=== PATIENT | male | born 1990 | race Caucasian/White ===

== ENCOUNTER 2024-03-17 08:46 | Emergency (ER) | payer OTHER, SELFPAY ==
[2024-03-17 08:52] VITALS: BP 136/80; PULSE 76; RESP 18; TEMP 36.7; O2SAT 100
--- NOTE | 2024-03-17 08:55 | ED.DENTAL ---
HPI - Dental/Oral General Chief complaint: Dental/Oral Stated complaint: tooth pain Source: patient Mode of arrival: ambulatory History of Present Illness HPI Narrative: 34 y/o male presented for c/o right lower dental pain worsening over the past few days. Reports filling came out about 3 weeks ago. States last night at 0200 the pain became intolerable. Has taken ibuprofen and Tylenol without much help, and states he needs abx. Hx dental abscesses and poor dentition. plans to f/u with [facility]. Complaint: tooth pain Related Data Allergies Allergy/AdvReac Type Severity Reaction Status Date / Time cefaclor Allergy Severe swelling Verified 11/15/19 10:50 Penicillins Allergy Severe swelling Verified 11/15/19 10:50 Review of Systems Review of Systems: CONSTITUTIONAL: Denies body aches, fever, chills ENT: Denies rhinorrhea, congestion, sore throat, or otalgia. Reports dental pain CARDIOVASCULAR: Denies chest pain, palpitations RESPIRATORY: Denies cough or dyspnea. SKIN: Denies rash, itching, or wounds. MUSCULOSKELETAL: Denies myalgia. NEUROLOGIC: Denies headache, numbness, tingling, or weakness. [facility] Social History Social History Gender identity (if verbalized by the patient): Male Comments At time of signature, I have reviewed and agree with nursing past medical, surgical, social and family history unless otherwise noted. Please see nursing chart for further information. There is no relevant family history pertinent to the presenting complaint Exam Narrative: GENERAL: Appears in pain; no acute distress. HEAD: Normocephalic, atraumatic. EYES: EOMI. No redness or drainage. Conjunctivae normal. ENT: Dental pain location of #19, broken tooth with mild gum erythema and swelling; multiple missing teeth/poor dentition; partial plate lower (removed for exam). no dysphagia, odynophagia, dysphonia, or dyspnea. No uvular deviation or soft palate edema. Mucous membranes pink and moist. TMs normal bilaterally. Throat normal. Uvula midline. NECK: Normal AROM. No lymphadenopathy. no induration below mandible, no neck pain. CHEST: No respiratory distress. Clear to auscultation. HEART: Regular rate and rhythm. No murmur appreciated. SKIN: Warm, dry, no rash. Normal skin turgor. NEURO: No focal deficits. Alert and oriented x3. Gait steady. Course Course Emergency Course: Patient is aware of diagnosis, understands and agrees to treatment plan. Anticipatory guidance given. Patient agrees to follow-up as directed and is aware of reasons to seek care at the emergency department. Portions of this record may have been created with voice recognition software Level of Care: Express Care Visit MDM - Dental/Oral MDM Narrative Medical decision making narrative: Patients pain and complaint coupled with physical findings are consistent with dental abscess. There are no focal signs of space occupying lesions that are compromising to the airway; Patient is non-toxic appearing. The floor of the mouth is soft with no signs of Yasmani's Angina;Patient is without trismus or drooling and able to swallow secretions. Patient is felt appropriate for discharge home with dental follow up. Rx clinda. Differential Diagnosis Differential diagnosis: Likely gingival abscess, dental caries, toothache, dental abscess, fracture of tooth and aphthous ulcer Discharge Plan Discharge Clinical Impression: Toothache Patient Disposition: Home, Self-Care Condition: Stable Instructions: Antibiotic Form, Dental Abscess (ED) Additional Instructions: Take antibiotic as directed May apply heat or ice to the face Gentle brushing and flossing. Rinse mouth with warm salt water at least 2 times a day. Alternate Tylenol and ibuprofen as needed for pain Follow-up with the dentist as soon as possible --see the list provided go to the ER for worsening symptoms or concerns Pre
== END 2024-03-17 09:06 | disposition home or self-care (01) ==
PROVIDERS: Emergency Provider Nurse Practitioner Family
DX: K08.89 Other specified disorders of teeth and supporting structures (principal)
CPT/HCPCS: 99203; G0463

== ENCOUNTER 2024-04-11 13:05 | Emergency (ER) | payer OTHER, SELFPAY ==
[2024-04-11 13:12] VITALS: BP 142/95; PULSE 99; RESP 16; TEMP 36.9; O2SAT 100
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
--- NOTE | 2024-04-11 13:48 | ECG_ITS ---
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 Measurements Intervals [place] Rate: P: TN: QRS: QRSD: T: QT: QTc: Interpretive Statements POOR QUALITY ECG PHOTOCOPY, DIFFICULT INTERPRETATION SINUS RHYTHM GROSSLY NORMAL ECG Electronically Signed On 04-18-2024 08:51:29 CDT by Alli Menjivar M.D.
== END 2024-04-11 14:19 | disposition home or self-care (01) ==
PROVIDERS: Emergency Provider Nurse Practitioner Family
DX: S61.213A Laceration without foreign body of left middle finger without damage to nail, initial encounter (principal); W45.8XXA Other foreign body or object entering through skin, initial encounter; T75.4XXA Electrocution, initial encounter; W86.0XXA Exposure to domestic wiring and appliances, initial encounter; Y99.8 Other external cause status
CPT/HCPCS: 12001; 93005; 99213; G0463

== ENCOUNTER 2024-06-26 08:34 | Outpatient (CLI) | payer OTHER, SELFPAY ==
[2024-06-26 19:21] LABS: Basophils Percent Auto 0.8 % (0.2-1.2); Eosinophils Absolute Auto 0.1 K/mm3 (0-0.3); Eosinophils Percent Auto 1.2 % (0-4.4); Hematocrit 42.6 % (42.0-52.0); Hemoglobin 14.8 g/dL (14.0-18.0); Lymphocytes Absolute Auto 1.48 K/mm3 (0.9-3.2); Lymphocytes Percent Auto 28.6 % (18.3-44.2); Mean Corpuscular HGB Conc 34.7 g/dl (32-36); Mean Corpuscular Hemoglobin 32.7 pg (26-34); Monocytes Absolute Auto 0.3 K/mm3 (0.1-0.6); Monocytes Percent Auto 6.6 % (2.6-8.5); Neutrophils Absolute Auto 3.3 K/mm3 (1.3-6.7); Neutrophils Percent Auto 62.8 % (45.5-73.1); Platelet Count Result 190 k/mm3 (150-375); Red Blood Count 4.53 M/mm3 (4.6-6.20); Red Cell Distribution Width 11.6 % (11.5-14.5); White Blood Count 5.2 K/mm3 (4.5-10.0)
[2024-06-26 19:37] LABS: Alanine Aminotransferase 18 U/L (6-50); Albumin Level 4.6 g/dL (3.5-5.1); Alkaline Phosphatase 55 U/L (38-126); Anion Gap 11 mmol/L (4-12); Aspartate Amino Transferase 45 U/L (17-59); Bilirubin,Total 0.8 mg/dL (0.2-1.3); Blood Urea Nitrogen 17 mg/dL (9-20); Calcium 9.2 mg/dL (8.4-10.2); Carbon Dioxide 25 mmol/L (22-30); Chloride 101 mmol/L (98-107); Cholesterol 225 mg/dL (0-200); Estimated Glomerular Filt Rate > 60; Glucose 89 mg/dL (65-110); HDL Direct 61 mg/dL; Potassium 3.8 mmol/L (3.4-5.0); Sodium 137 mmol/L (137-145); Triglycerides 68 mg/dL (<150)
[2024-06-26 19:48] LABS: LDL Cholesterol Direct 141 mg/dL
[2024-06-26 19:55] LABS: Vitamin D 25 Hydroxy 31.7 ng/mL
[2024-06-26 20:44] LABS: Folic Acid 11.1 ng/mL (2.76->20)
[2024-06-30 21:13] LABS: Testosterone Free 93.2 pg/mL (35.0-155.0); Testosterone Total 564 ng/dL (250-1100)
== END 2024-06-26 08:35 | disposition home or self-care (01) ==
PROVIDERS: PCP Nurse Practitioner Adult Health; Visit Provider Nurse Practitioner Adult Health
DX: Z13.9 Encounter for screening, unspecified (principal); R53.83 Other fatigue
CPT/HCPCS: 36415; 80053; 80061; 82306; 82607; 82746; 84402; 84403; 84443; 85025

== ENCOUNTER 2025-07-21 10:24 | Outpatient (CLI) | payer OTHER, SELFPAY ==
--- OUTSIDE RECORDS SUMMARY | 2016-02-21 11:30 | XMS_ITS | Continuity of Care Document ---
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 Role Phone Shahram Henderson MD Unavailable Unavailable Allergies, Adverse Reactions, Alerts Substance Reaction Status Criticality cefaclor Active No Information Medications Medication Instructions Dosage Effective Dates (start - stop) Status Comments oxycodone 5 mg tablet take 1 tablet by oral route 3 times every day as needed 5 MG - Active avoid drivin g or operate machines morphine ER 15 mg tablet,extended release take 1 tablet by oral route 2 times every day 15 MG - Active avoid driving or operate machines Procedures Procedure Date OFFICE/OUTPATIENT VISIT, EST PREV VISIT, NEW, AGE 18-39 OFFICE/OUTPATIENT VISIT, NEW Advance Directives Directive Yes / No Effective Date File Name No Information Encounters Encounter Description Practice Location Reason(s) For Visit Diagnoses Date Provider Providers Copied on Encounter OFFICE/OUTPAT IENT VISIT, EST [facility], [address] [place], [place], [id number], [place] tel:[phone] [facility] chronic pain (chief complaint) Chronic pain syndrome 6 Santiago Omalley. [address] [place], [id number] , [place]. tel:[phone] Referring Provider: Shahram Henderson, [address] [facility] [address], [place], [place], [id number]. tel:[phone] PREV VISIT, NEW, AGE 18-39 [facility], [address], [place], [place], [id number], [place] tel:[phone] [facility] PHysical (chief complaint) Encounter for general adult medical exam w abnormal findingsChronic pain syndrome 6 Henderson Shahram. [address], [place], [place], [id number] , [place]. tel:[phone] Referring Provider: Shahram Santiago, [address], [place], [place], [id number]. tel:[phone] Family History Family Member Type Diagnosis Age At Onset Brother Problem (finding) Alive and well Father Problem (finding) Unknown Mother Problem (finding) Alive and well Payers Payer name Insurance type Covered democrat ID Authoriza tion(s) No Information Social History Type Description Quantity Date Captured Comments Alcohol Use Details No Caffeine Use Details Unknown Tobacco Use Status User of moist powdered tobacco Smoking Status Former smoker Sex Male Vital Signs Date / Time: Height Weight BMI Pulse Rate Blood Pressure Temperature Respiratory Rate Body Surface Area Head Circumference BMI percentile Pulse Ox Inhaled Ox 5:57 PM 182.88 cm 153.50 lbs 20.8 2 kg/m eter (2) 83 /min 116/77 mm[Hg] 97.1 F 18 /min Chief Complaint And Reason For Visit From encounter dated '02/21/2016 16:30'. chronic pain (chief complaint). Description: Pt has chronic left heel pain post surgery and fracture. Pt takes oxycodone and morphine for pain and doing ok. Pt denies any worsening pain Pt denies anychange in quality of pain Plan Of Treatment Date Type Action Status No Information History Of Present Illness Encounter Date Complaint History Of Prese nt Illness chronic pain Pt has chronic l eft heel pain post surgery and fracture. Pt takes oxycodone and morphine for pain and doing ok. Pt denies any worsening pain Pt denies any change in quality of pain PHysical 25 yo male needs annual physical. Pt has chronic left heel pain. Pt fell from roof 5 months ago and completely shatterred his left heel and he has to get his left heel reattached with pins and plates. Pt c/o judithy and chronic left heel pain. 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 Pt was seeing Dr. Dean who give him morphine and also oxycodone for pain. Pt c/o left lateral ankle numnbess since the injury and surgery. Pt denies any other complaints Instructions Date Instruction Additional Infor jahairaion Prescribed Activity and Exercise Education Related to Dietary Surveillance and Counseling Prescribed Diet Educ ation/Lifestyle Education Regarding Diet Related to Dietary Surveillance and Counseling Assessments Type Assessment Date assessment Chronic pain syndrome 6 Mental Status Date Cognitive Assessment Orientation - [place]dor[place] ed to time, place, person, situation.
--- OUTSIDE RECORDS SUMMARY | 2025-07-21 12:01 | XMS_ITS | Clinical Summary ---
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 Gender Identity Not on file Sexual Orientation Not on file Obstetrics History Last Filed Vital Signs Vital Sign Reading Time Taken Comments Blood Pressure 135/62 07/29/2015 8:57 AM CDT Pulse 78 07/29/2015 8:57 AM CDT Temperature - - Respiratory Rate - - Oxygen Saturation 98% 07/29/2015 8:57 AM CDT Inhaled Oxygen Concentration - - Weight 68 kg (149 lb 15.7 oz) 07/28/2015 5:08 PM CDT Height 182.9 cm (6') 07/28/2015 5:08 PM CDT Body Mass Index 20.34 07/28/2015 5:08 PM CDT Plan of Treatment Not on file Insurance [facility] CHOICE [facility]US [facility] H[facility]/PPO Address: [facility] [address] [place] [address] Care Teams Birdcage Assembler Relationship Specialty Start Date End Date Unknown, Notinfile PCP - General 10/13/21
[2025-07-21 18:29] LABS: Hematocrit 41.5 % (42.0-52.0); Hemoglobin 14.3 g/dL (14.0-18.0); Mean Corpuscular HGB Conc 34.5 g/dl (32-36); Mean Corpuscular Hemoglobin 31.6 pg (26-34); Mean Corpuscular Volume 91.8 fl (80-100); Platelet Count Result 207 k/mm3 (150-375); Red Blood Count 4.52 M/mm3 (4.6-6.20); White Blood Count 5.3 K/mm3 (4.5-10.0)
[2025-07-21 18:48] LABS: Alanine Aminotransferase 22 U/L (6-50); Albumin Level 4.1 g/dL (3.5-5.1); Alkaline Phosphatase 70 U/L (38-126); Anion Gap 5 mmol/L (4-12); Aspartate Amino Transferase 49 U/L (17-59); Bilirubin,Total 0.6 mg/dL (0.2-1.3); Blood Urea Nitrogen 13 mg/dL (9-20); Calcium 8.8 mg/dL (8.4-10.2); Carbon Dioxide 29 mmol/L (22-30); Chloride 102 mmol/L (98-107); Cholesterol 203 mg/dL (0-200); Estimated Glomerular Filt Rate > 60; Glucose 80 mg/dL (65-110); HDL Direct 69 mg/dL; Potassium 4.2 mmol/L (3.4-5.0); Sodium 136 mmol/L (137-145); Total Protein 6.7 g/dL (6.3-8.2); Triglycerides 82 mg/dL (<150)
== END 2025-07-21 10:25 | disposition home or self-care (01) ==
LOC: ANHBWCLAB 10:25
PROVIDERS: PCP Nurse Practitioner Adult Health; Visit Provider Nurse Practitioner Adult Health
DX: Z00.00 Encounter for general adult medical examination without abnormal findings (principal)
CPT/HCPCS: 36415; 80053; 80061; 85027